=== PATIENT | female | born 2000 | race Caucasian/White ===

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

== ENCOUNTER → 2019-08-12 | Outpatient (REF) | payer OTHER ==
[2019-08-12 14:32] LABS: CHLAMYDIA DNA AMPLIFICATION NEGATIVE (NEGATIVE); GC DNA AMPLIFICATION NEGATIVE (NEGATIVE)
== END ==
LOC: M LAB REF 11:16
PROVIDERS: ATTEND Physician Assistant
DX: R30.0 Dysuria (principal)

== ENCOUNTER 2020-01-25 16:02 | Outpatient (CLI) | payer OTHER ==
[~2020-01-25] VITALS: Ht 167.6 cm; Wt 75.0 kg
[2020-01-25 16:15] VITALS: BP 128/66
[2020-01-25] MEDS ORDERED: BEZLOTOXUMAB in NS 100 ML OVER 1 HR IV ONE (16:30)
[2020-01-25 17:28] VITALS: BP 127/62
== END 2020-01-25 17:27 | disposition home or self-care (01) ==
LOC: M INFU 16:02
PROVIDERS: ATTEND Internal Medicine Infectious Disease
DX: A04.71 Enterocolitis due to Clostridium difficile, recurrent (principal); Z88.1 Allergy status to other antibiotic agents
CPT/HCPCS: 96365; J0565

== ENCOUNTER → 2020-10-10 | Outpatient (CLI) | payer OTHER ==
[2020-10-10 14:07] LABS: BASO % 0.5 % (0.0-1.0); EOS # 0.1 10^3/uL (0.0-0.5); EOS % 1.4 % (0.0-3.0); HEMATOCRIT 37.6 % (36.0-47.0); HEMOGLOBIN 12.7 g/dl (12.0-15.5); LYMPH # 2.1 10^3/uL (1.5-5.0); LYMPH % 36.1 % (24.0-44.0); MEAN CORPUSCULAR HEMOGLOBIN 29.3 pg (27.0-33.0); MEAN CORPUSCULAR HGB CONC 33.8 g/dl (32.0-36.5); MEAN CORPUSCULAR VOLUME 86.6 fl (80.0-96.0); MONO # 0.2 10^3/uL (0.0-0.8); MONO % 4.2 % (2.0-8.0); NEUTROPHILS # 3.3 10^3/uL (1.5-8.5); NEUTROPHILS % 57.6 % (36.0-66.0); PLATELET COUNT, AUTOMATED 292 10^3/uL (150-450); RED BLOOD COUNT 4.34 10^6/uL (4.00-5.40); WHITE BLOOD COUNT 5.7 10^3/uL (4.0-10.0)
[2020-10-10 14:27] LABS: ERYTHROCYTE SEDIMENTATION RATE 7 mm/hr (0-20)
[2020-10-10 14:37] LABS: ALBUMIN 4.1 GM/DL (3.2-5.2); ALT/SGPT 18 U/L (12-78); BILIRUBIN,TOTAL 0.6 MG/DL (0.2-1.0); BLOOD UREA NITROGEN 16 MG/DL (7-18); CALCIUM LEVEL 8.9 MG/DL (8.5-10.1); CARBON DIOXIDE LEVEL 26 MEQ/L (21-32); CHLORIDE LEVEL 110 MEQ/L (98-107); FERRITIN 47 NG/ML (8-252); GLOMERULAR FILTRATION RATE > 60.0 (>60); GLUCOSE, FASTING 90 MG/DL (70-100); IRON (FE) 86 UG/DL (50-170); PERCENT SATURATION 22.6 % (13.2-45.0); POTASSIUM SERUM 3.5 MEQ/L (3.5-5.1); SODIUM LEVEL 141 MEQ/L (136-145); TOTAL IRON BINDING CAPACITY 380 UG/DL (250-450); TOTAL PROTEIN 7.3 GM/DL (6.4-8.2)
[2020-10-16 16:09] LABS: Chitobioside Carbohydrat (ACCA 34 units (0-90); Laminaribioside Carbohyd (ALCA 13 units (0-60); Mannobioside Carbohydrat (AMCA 49 units (0-100); Saccharomyces cerevisiae IgG A 16 units (0-50)
== END ==
LOC: M LAB 12:11
PROVIDERS: ATTEND Physician Assistant
DX: K62.5 Hemorrhage of anus and rectum (principal); R19.7 Diarrhea, unspecified

== ENCOUNTER → 2020-10-18 | Outpatient (CLI) | payer OTHER ==
[~2020-10-18] MED LIST: GASTROGRAFIN SOLUTION 30ML (Q9963) As Ordered ONE; ISOVUE-370 76% 100ML VIAL As Ordered ONE
--- NOTE | 2020-10-18 13:30 | REP ---
INDICATION: HEMORRHAGE FM H/O CROHNS. Personal history of C diff recently. Generalized abdominal pain. Rectal bleeding. COMPARISON: June 17, 2015. TECHNIQUE: Helical scanning is acquired and 3 mm axial images re-formatted. Coronal and sagittal MPR images are generated. The CT contrast enhancement dose is 100 mL of intravenous Isovue 370. Oral contrast was also administered. FINDINGS: Preliminary digital data conversion operator radiograph shows mild air distension of the stomach. Bowel gas pattern is otherwise unremarkable. Axial CT images demonstrate that the lung bases are clear. There is mild diffuse fatty infiltration of the liver. No focal liver lesion is seen. No abnormality is noted in the in the gallbladder or in the pancreas. Normal adrenal glands are observed bilaterally. The spleen is unremarkable. The kidneys enhance symmetrically and are morphologically intact. No retroperitoneal mass or adenopathy is seen. No vascular abnormality is observed. There is no evidence of free fluid or free intraperitoneal air. Small and large bowel loops are normal in the upper abdomen. Pelvic CT images demonstrate a zone of mural thickening and slight mucosal hyperenhancement in the cecum consistent with inflammation of the cecal wall. This is located in the pelvis. There are some right lower quadrant small bowel mesenteric lymph nodes which are not enlarged individually. No abscess is seen. The appendix is not well seen. No mural thickening is noted in the distal ileum or elsewhere in the small bowel. Bone window settings demonstrate normal SI joints. No bony destructive lesion is seen. IMPRESSION: Mural thickening in the cecum consistent with enterocolitis. No evidence of abscess or free air. Visible small bowel mesenteric lymph nodes not enlarged. Appendix not well seen. Otherwise negative. <Electronically signed by Jose Miguel Parker > 10/18/20 [id number]
== END ==
LOC: M RAD 10:54
PROVIDERS: ATTEND Physician Assistant
DX: K62.5 Hemorrhage of anus and rectum (principal)
CPT/HCPCS: 74177; Q9963; Q9967

== ENCOUNTER → 2024-11-27 | Outpatient (CLI) | payer BC ==
[2024-11-27 10:09] LABS: PLATELET COUNT, AUTOMATED 408 10^3/uL (150-450)
[2024-11-27 10:29] LABS: IRON (FE) 120 UG/DL (50-170); PERCENT SATURATION 31.3 % (13.2-45.0)
[2024-11-27 10:30] LABS: ALT/SGPT 14 U/L (7.0-40); AST/SGOT 20 U/L (<34); C REACTIVE PROTEIN QUANTITATIV < 0.50 MG/DL (<1.0); CALCIUM LEVEL 9.5 MG/DL (8.5-10.1); CARBON DIOXIDE LEVEL 26 MMOL/L (20-31); CHLORIDE LEVEL 104 MMOL/L (98-107); CREATININE FOR GFR 0.79 MG/DL (0.55-1.30); GLOMERULAR FILTRATION RATE > 90.0 (>60); POTASSIUM SERUM 4.4 MMOL/L (3.5-5.1); SODIUM LEVEL 141 MMOL/L (136-145)
[2024-11-27 10:35] LABS: TOTAL 25(OH) VITAMIN D 33.4 NG/ML (20.0-100.0); VITAMIN B12 LEVEL 623 PG/ML (211-911)
[2024-11-27 10:44] LABS: ERYTHROCYTE SEDIMENTATION RATE 17 mm/hr (0-20)
== END ==
LOC: M LAB 07:53
PROVIDERS: ATTEND Internal Medicine Gastroenterology
DX: K51.90 Ulcerative colitis, unspecified, without complications (principal)

== ENCOUNTER → 2024-11-27 | Outpatient (CLI) | payer BC ==
[2024-11-27 10:09] LABS: BASO # 0.0 10^3/uL (0.0-0.2); BASO % 0.7 % (0.0-1.0); EOS # 0.2 10^3/uL (0.0-0.5); EOS % 2.4 % (0.0-3.0); LYMPH # 2.4 10^3/uL (1.5-5.0); LYMPH % 39.0 % (24.0-44.0); MONO # 0.3 10^3/uL (0.0-0.8); MONO % 5.2 % (2.0-8.0); NEUTROPHILS # 3.2 10^3/uL (1.5-8.5); NEUTROPHILS % 52.5 % (36.0-66.0); PLATELET COUNT, AUTOMATED 445 10^3/uL (150-450)
[2024-11-27 10:29] LABS: ESTIMATED AVERAGE GLUCOSE 105.0 MG/DL (60-110)
[2024-11-27 10:30] LABS: ALT/SGPT 16 U/L (7.0-40); AST/SGOT 20 U/L (<34); CALCIUM LEVEL 9.6 MG/DL (8.5-10.1); CARBON DIOXIDE LEVEL 25 MMOL/L (20-31); CHLORIDE LEVEL 107 MMOL/L (98-107); CHOLESTEROL LEVEL 182 MG/DL (<200); CHOLESTEROL RISK RATIO 3.20 (<5); CREATININE FOR GFR 0.77 MG/DL (0.55-1.30); GLOMERULAR FILTRATION RATE > 90.0 (>60); LDL CHOLESTEROL 110.4 MG/DL (<100); NON-HDL-C 125.2 MG/DL; POTASSIUM SERUM 4.7 MMOL/L (3.5-5.1); SODIUM LEVEL 140 MMOL/L (136-145); TRIGLYCERIDES LEVEL 74 MG/DL (<150)
[2024-11-27 10:32] LABS: FREE T4 1.13 NG/DL (0.89-1.76); LUTEINIZING HORMONE 1.4 mIU/ML; TESTOSTERONE 22 NG/DL (14-76)
== END ==
LOC: M LAB 07:55
PROVIDERS: ATTEND Family Medicine
DX: L68.0 Hirsutism (principal); Z13.220 Encounter for screening for lipoid disorders; Z13.29 Encounter for screening for other suspected endocrine disorder; K51.90 Ulcerative colitis, unspecified, without complications